=== PATIENT | male | born 1935 | race Caucasian/White ===

== ENCOUNTER 2016-12-21 20:50 | Emergency (ER) ==
[2016-12-21] MEDS ORDERED: DEXTROSE 5%-1/2NS IV SOLUTION 1,000 ML IV STA (20:54)
[2016-12-21 21:08] VITALS: BP 152/75; TEMP 98.8; BMI 33.9
--- NOTE | 2016-12-22 01:36 | ED.PDOC ---
General ED Provider: Dr. MARIVEL SIMMONS-ER Chief Complaint: Non-specific Complaint Stated Complaint: i took too much short acting insulin Time Seen by Physician: 01:33 Mode of Arrival: Walk-In Information Source: Patient Exam Limitations: No limitations Primary Care Provider: MARIVEL SIMMONS Nursing and Triage Documentation Reviewed and Agree: Yes Endocrine Complaint Exam - Diabetic Complication Complaint/Exam Onset/Duration: 30 min Symptoms Are: Still present Timing: Constant Initial Severity: Mild Current Severity: None Character: Alert Aggravating: Reports: None Alleviating: Reports: None Associated Signs and Symptoms: Denies: Decreased LOC, Polydipsia, Polyuria, Polyphagia, Weight loss, Abdominal pain, Nausea, Vomiting, Fever, Diaphoresis, Fruity breath Related History: Reports: DM 2 Last Glucometer Readin Cardiac Risk Factors: Reports: DM CVA Risk Factors: Reports: DM Serious Bacterial Infection Risk Factors: Reports: None Related Surgical History: Reports: None Acetone on Breath: No Dry Mucous Membranes: No Kussmaul Respirations: No Glascow Coma Scale (see protocol): 15 Meningeal Signs: No Focal Weakness: None Focal Sensory Loss: None Gait: Normal Nystagmus Present: No Gag Reflex Present: No Finger to Nose: Normal Romberg Test Positive: No Heel to Toe Normal: Yes Differential Diagnoses: Hypoglycemia Review of Systems - Review Of Systems Constitutional: Reports: No symptoms Eyes: Reports: No symptoms Ears, Nose, Mouth, Throat: Reports: No symptoms Respiratory: Reports: No symptoms Cardiac: Reports: No symptoms GI: Reports: No symptoms : Reports: No symptoms Musculoskeletal: Reports: No symptoms Skin: Reports: No symptoms Neurological: Reports: No symptoms Endocrine: Reports: No symptoms Hematologic/Lymphatic: Reports: No symptoms All Other Systems: Reviewed and Negative Past Medical History - Past Medical History Endocrine: Reports: DM 2 Cardiovascular: Reports: Hypertension, A-Fib Respiratory: Reports: COPD Hematological: Reports: None Gastrointestinal: Reports: GERD Genitourinary: Reports: None Neuro/Psych: Reports: None Musculoskeletal: Reports: None Cancer: Reports: None - Surgical History General Surgical History: Reports: Unknown - Family History Family History: Reports: Unknown - Social History Smoking Status: Former smoker Hx Substance Use: No Alcohol Screening: Occasionally - Immunizations Tetanus Shot up to Date: No Physical Exam - Physical Exam Appearance: Well-appearing, No pain distress, Well-nourished Eyes: SUZANNE, EOMI, Conjunctiva clear ENT: Ears normal, Nose normal, Oropharynx normal Neck: Supple Respiratory: Airway patent, Breath sounds clear, Breath sounds equal, Respirations nonlabored Cardiovascular: RRR, Pulses normal, No rub, No murmur GI/: Soft, Nontender, No masses, Bowel sounds normal, No Organomegaly Musculoskeletal: Normal strength, ROM intact, No edema, No calf tenderness Skin: Warm, Dry, Normal color Neurological: Sensation intact, Motor intact, Reflexes intact, Cranial nerves intact, Alert, Oriented Psychiatric: Affect appropriate, Mood appropriate Critical Care Note - Critical Care Note Total Time (mins): 0 Course - Course Orders, Labs, Meds: Orders Category Date Time Status ACCUCHECK (ED) [ED ACCUCHECK ASSESSMENT] Q1HR EMERGENCY 12/21/16 20:54 Active ED IV/MEDIPORT/POWERPORT .ONCE EMERGENCY 12/21/16 20:54 Active 0.9 % Sodium Chloride [Saline Flush] MEDS 12/21/16 20:54 Ordered 1 syr IVF PRN PRN Dextrose 5 %-0.45 % NaCl [Dextrose 5%-1/2Ns IV Solution MEDS 12/21/16 20:54 Active ] 1,000 ml IV 100 mls/hr Medications Generic Name Dose Route Start Last Admin Trade Name Freq PRN Reason Stop Dose Admin Dextrose/Sodium Chloride 1,000 mls @ 100 mls/hr 12/21/16 20:54 12/21/16 21:15 Dextrose 5%-1/2ns Iv Solution IV 12/22/16 06:53 100 mls/hr .Q10H STA Administration Sodium Chloride 1 syr 12/21/16 20:54 Saline Flush IVF PRN PRN To flush IV Vital Signs: Temp Pulse Resp BP Pulse Ox 12/21/16 20:53 98.8 F 79 22 152/75 H 96 Departure - Departure Time of Disposition: 01:36 Disposition: HOME SELF-CARE Discharge Problem: Hypoglycemia Instructions: Hypoglycemia in a Person with Diabetes (ED) Condition: Good Pt referred to PMD for follow-up: Yes Additional Instructions: continue to monitor bs---keep me informd Allergies/Adverse Reactions: Allergies No Known Allergies Allergy (Unverified 12/21/16 22:22) Home Medications: Ambulatory Orders Apixaban [Eliquis] 5 mg PO BID 12/21/16 Atenolol 25 mg PO DAILY 12/21/16 Ergocalciferol (Vitamin D2) [Vitamin D2] 50,000 units PO MONTHLY 12/21/16 Ezetimibe [Zetia] 10 mg PO DAILY 12/21/16 Fluticasone/Vilanterol [Breo Ellipta 100-25 Mcg INH] 1 mcg INH DAILY 12/21/16 Furosemide 20 mg PO DAILY 12/21/16 Gabapentin 600 mg PO BEDTIME 12/21/16 Hydrocodone/Acetaminophen [Hydrocodon-Acetaminophn 10-325] 10 - 325 mg PO Q6HR 12/21/16 Insulin Detemir [Levemir] 220 units SUBCUT BEDTIME 12/21/16 Insulin Lispro [Humalog Kwikpen U-200] 80 units SUBCUT TID 12/21/16 Losartan Potassium [Cozaar] 50 mg PO DAILY 12/21/16 Prednisone 10 mg PO DAILYWM 12/21/16 Quetiapine Fumarate 100 mg PO BEDTIME 12/21/16 Disposition Discussed With: Patient
== END 2016-12-22 02:04 | disposition home or self-care (01) ==
LOC: ED 20:50
DX: E11.649 Type 2 diabetes mellitus with hypoglycemia without coma (principal); Z79.4 Long term (current) use of insulin; Z79.899 Other long term (current) drug therapy
CPT/HCPCS: 82962; 96360; 96361; 99284

== ENCOUNTER 2017-03-06 21:57 | Inpatient (IN) ==
[2017-03-06] MEDS ORDERED: SOLU-MEDROL 125 MG IVP STA (22:13)
[2017-03-06] MEDS ORDERED: BUMEX IVP STA (22:13)
[2017-03-06] MEDS ORDERED: XOPENEX 1.25 MG NEB STA (22:14)
[2017-03-06] MEDS ORDERED: DUONEB NEB STA (22:14)
[2017-03-06 22:31] LABS: BASOPHILS # (AUTO) 0.1 K/uL (0-0.2); BASOPHILS % (AUTO) 0.7 % (0.0-3.0); EOSINOPHILS # (AUTO) 0.1 K/ul (0.0-0.7); EOSINOPHILS % (AUTO) 1.2 % (0.0-7.0); HEMATOCRIT 37.2 % (42.0-52.0); HEMOGLOBIN 12.5 g/dl (14.0-18.0); IMMATURE GRANULOCYTE % (AUTO) 2.4 % (0.0-5.0); MEAN CORPUSCULAR HEMOGLOBIN 30.7 pg (27.0-31.0); MEAN CORPUSCULAR HGB CONC 33.6 (31.8-35.4); MEAN CORPUSCULAR VOLUME 91.4 fl (80.0-94.0); MONOCYTES # (AUTO) 0.7 K/uL (0.4-2.0); MONOCYTES % (AUTO) 6.7 (0-10); PLATELET COUNT 183 10^3/uL (140-440); RED BLOOD COUNT 4.07 10^6/ul (4.70-6.10); WHITE BLOOD COUNT 10.09 K/ul (4.2-10.2)
[2017-03-06 23:25] LABS: ALBUMIN 3.9 g/dL (3.4-5.0); ALBUMIN/GLOBULIN RATIO 1.5; ANION GAP 18.9; BILIRUBIN,TOTAL 0.18 mg/dL (0.00-1.20); BUN/CREATININE RATIO 21.83; CALCIUM 9.6 mg/dL (8.2-10.2); CREATININE 1.42 mg/dL (0.60-1.10); POTASSIUM 3.9 mmol/L (3.5-5.1); TOTAL PROTEIN 6.5 g/dL (5.8-8.1); TROPONIN I 0.012 ng/ml (0.0000-0.4000)
[2017-03-06 23:27] LABS: CREATINE KINASE MB 4.2 ng/ml (0.0-3.6)
--- NOTE | 2017-03-06 23:58 | CT ---
EXAM: CT scan thorax without contrast HISTORY: Shortness of breath cough COMPARISON: none. FINDINGS: Contiguous axial images were obtained through the thorax without contrast utilizing 5-mm collimation . Sagittal and coronal reconstructions were imaged and reviewed The thoracic inlet is unremarkable. . Subcentimeter pretracheal lymph nodes. Calcified lymph nodes are seen the AP window. The ascend ing aorta is ectatic measuring 3.7 cm. The descending thoracic at the same level measures 2.9 cm. Heart is normal in size with coronary artery calcification. There are moderate emphysematous change s. There is a 2 mm nodule peripherally within the right upper lobe.. Scattered areas of subpleural fibrotic changes are noted in both lower lobes.. There has been prior cholecystectomy. There is a small hiatal hernia.. Impression: Emphysematous changes with scattered areas of subpleural fibrosis. No acute findings. Prior cholecystectomy.
[2017-03-07 00:05] LABS: ABG BASE EXCESS 1 (-2.0-2.0); ABG HCO3 25.5 (22.0-26.0); ABG PCO2 39.9 mmHg (35-45); ABG PH 7.413 (7.35-7.45); ABG TCO2 27 (22.0-28.0)
[2017-03-07] MEDS ORDERED: SODIUM CHLORIDE 500 ML IV STA (00:17)
[2017-03-07] MEDS ORDERED: ROCEPHIN 1 GM in SODIUM CHLORIDE 50 ML IV STA (00:51)
--- NOTE | 2017-03-07 01:05 | ED.PDOC ---
General ED Provider: Dr. MARIVEL SIMMONS-ER Chief Complaint: Shortness of Air Stated Complaint: im wheezing and sob Time Seen by Physician: 21:55 Mode of Arrival: Walk-In Information Source: Patient Exam Limitations: No limitations Primary Care Provider: MARIVEL SIMMONS Nursing and Triage Documentation Reviewed and Agree: Yes Respiratory Complaint Exam - Respiratory Complaint/Exam Onset/Duration: several days Symptoms Are: Still present Initial Severity: Mild Current Severity: Moderate Location: Chest Character: Reports: Productive cough Alleviating: Reports: Bronchodilators Associated Signs and Symptoms: Reports: Dyspnea. Denies: Rapid breathing, Fever , Chills, Chest pain, Pleuritic chest pain, Wheezing, Hemoptysis, Dizziness, Calf pain, Calf swelling, Edema, URI, Nasal congestion, Hoarseness, Sinus discomfort, Vomiting, Sore throat, Weight loss, Decreased oral intake, Increased thirst, Increased appetite, Increased urination Related History: Reports: Similar episode History of Healthcare-Acquired Pneumonia: No Cardiac Risk Factors: Reports: None Pseudomonas Risk Factors: Reports: Chronic Lung Disease Tuberculosis Risk Factors: Reports: Chronic Resp. Faliure Home Oxygen Use: Yes Recent Stress Test: No Recent Echo/LV Function: No Current Antibiotic Use: No Current Asthma Medication Use: No Respiratory Distress: Mild Inadequate Respiratory Effort: Yes Dysphagia Present: No Stridor Present: No JVD Present: No Accessory Muscle Use: Yes Retractions: Not Present Diminished Breath Sounds: Yes Sinus Tenderness: None Grunting Respirations: No Kussmaul Respirations: No Differential Diagnoses: COPD Exacerbation, Pneumonia, Bronchitis Non-Traumatic Chest Pain Syncope: EKG Performed Review of Systems - Review Of Systems Constitutional: Reports: No symptoms Eyes: Reports: No symptoms Ears, Nose, Mouth, Throat: Reports: No symptoms Respiratory: Reports: Cough, Wheezing Cardiac: Reports: No symptoms GI: Reports: No symptoms : Reports: No symptoms Musculoskeletal: Reports: No symptoms Skin: Reports: No symptoms Neurological: Reports: No symptoms Endocrine: Reports: No symptoms Hematologic/Lymphatic: Reports: No symptoms All Other Systems: Reviewed and Negative Past Medical History - Past Medical History Previously Healthy: Yes Endocrine: Reports: DM 2 Cardiovascular: Reports: Hypertension, A-Fib Respiratory: Reports: COPD Hematological: Reports: None Gastrointestinal: Reports: GERD Genitourinary: Reports: None Neuro/Psych: Reports: None Musculoskeletal: Reports: None Cancer: Reports: None - Surgical History General Surgical History: Reports: Unknown - Family History Family History: Reports: Unknown - Social History Smoking Status: Former smoker Hx Substance Use: No Alcohol Screening: None Lives: With family - Immunizations Tetanus Shot up to Date: Yes Physical Exam - Physical Exam Appearance: Well-appearing, No pain distress, Well-nourished Eyes: SUZANNE, EOMI, Conjunctiva clear ENT: Ears normal Neck: Supple Respiratory: Wheezes Cardiovascular: RRR, Pulses normal, No rub, No murmur GI/: Soft, Nontender, No masses, Bowel sounds normal, No Organomegaly Musculoskeletal: Normal strength Skin: Warm, Dry, Normal color Neurological: Sensation intact, Motor intact, Reflexes intact, Cranial nerves intact, Alert, Oriented Psychiatric: Affect appropriate, Mood appropriate, Anxious Interpretation - Radiology Interpretation Radiology Interpretation By: Radiologist Radiology Results: Positive Exam Interpreted: CT Scan - EKG Interpretation Time of EKG #1: 01:05 Rate: Normal Rhythm: Sinus Ectopy: None ST Segment: Normal Critical Care Note - Critical Care Note Total Time (mins): 0 Course - Course Hematology/Chemistry: 03/06/17 22:10 03/06/17 22:20 Orders, Labs, Meds: Lab Review 03/06/17 03/06/17 03/06/17 22:10 22:12 22:20 WBC 10.09 RBC 4.07 L Hgb 12.5 L Hct 37.2 L MCV 91.4 MCH 30.7 MCHC 33.6 RDW Coeff of [place] 13.8 Plt Count 183 Immature Gran % (Auto) 2.4 Neut % (Auto) 69.0 Lymph % (Auto) 20.0 [place] % (Auto) 6.7 Eos % (Auto) 1.2 Baso % (Auto) 0.7 Immature Gran # (Auto) 0.2 Neut # 7.0 H Lymph # 2.0 Chase # 0.7 Eos # 0.1 Baso # 0.1 Puncture Site Lr O2 Saturation 94.0 L ABG pH 7.413 ABG pCO2 39.9 ABG pO2 71.0 L ABG HCO3 25.5 ABG Total CO2 27 ABG Base Excess 1 Yung Test + O2 Delivery Device Nc Oxygen Liter Flow 2.00 FiO2 % 28.0 Sodium 142 Potassium 3.9 Chloride 105 Carbon Dioxide 22 L Anion Gap 18.9 BUN 31 H Creatinine 1.42 H Estimated GFR (MDRD) 48.00 BUN/Creatinine Ratio 21.83 Glucose 187 H Calcium 9.6 Total Bilirubin 0.18 AST 22 ALT 36 Alkaline Phosphatase 53 L Total Creatine Kinase 207 CK-MB (CK-2) 4.2 H CK-MB (CK-2) % 2.33483 Troponin I 0.0120 B-Natriuretic Peptide 62 Total Protein 6.5 Albumin 3.9 Globulin 2.6 Albumin/Globulin Ratio 1.50 Orders Category Date Time Status ABG DRAW REQUEST Stat CARDIO 03/06/17 22:12 Completed EKG-(ED ONLY) Stat CARDIO 03/06/17 22:12 Completed NEBULIZER TREATMENT Stat CARDIO 03/06/17 22:14 Completed ED IV/MEDIPORT/POWERPORT .ONCE EMERGENCY 03/06/17 22:13 Active ABG Stat LAB 03/06/17 22:12 Completed BLOOD CULTURE Stat LAB 03/06/17 22:50 Received BNP [B-TYPE NATRIURETIC PEPTIDE] Stat LAB 03/06/17 22:10 Completed CBC W/ AUTO DIFF Stat LAB 03/06/17 22:10 Completed COMPREHENSIVE METABOLIC PANEL Stat LAB 03/06/17 22:20 Completed CREATINE KINASE Stat LAB 03/06/17 22:20 Completed TROPONIN I Stat LAB 03/06/17 22:20 Completed 0.9 % Sodium Chloride [Saline Flush] MEDS 03/06/17 22:13 Ordered 1 syr IVF PRN PRN Bumetanide [Bumex] MEDS 03/06/17 22:13 Discontinued 1 mg IVP ONCE STA Ceftriaxone Sodium [Rocephin] 1 gm MEDS 03/07/17 00:51 Active 0.9 % Sodium Chloride [Sodium Chloride] 50 ml IV ONCE Ipratropium/Albuterol Neb [Duoneb] MEDS 03/06/17 22:14 Discontinued 1 vial NEB ONCE STA Levalbuterol HCl [Xopenex 1.25 mg] MEDS 03/06/17 22:14 Discontinued 1 vial NEB ONCE STA Methylprednisolone Sod Succ/Pf [Solu-Medrol 125 mg] MEDS 03/06/17 22:13 Discontinued 125 mg IVP ONCE STA Sodium Chloride 0.9% [Sodium Chloride] 500 ml MEDS 03/07/17 00:[address] CHEST W/O CONTRAST Stat RADS 03/06/17 22:14 Completed Medications Generic Name Dose Route Start Last Admin Trade Name Freq PRN Reason Stop Dose Admin Sodium Chloride 500 mls @ 500 mls/hr 03/07/17 00:17 03/07/17 00:43 Sodium Chloride IV 03/07/17 01:16 500 mls/hr BOLUS STA Administration Ceftriaxone Sodium 1 gm/ 50 mls @ 75 mls/hr 03/07/17 00:51 Sodium Chloride IV 03/07/17 01:30 ONCE STA Sodium Chloride 1 syr 03/06/17 22:13 Saline Flush IVF PRN PRN To flush IV Discontinued Medications Generic Name Dose Route Start Last Admin Trade Name Ivette PRN Reason Stop Dose Admin Albuterol/Ipratropium 1 vial 03/06/17 22:14 03/06/17 22:57 Duoneb NEB 03/06/17 22:15 1 vial ONCE STA Administration Bumetanide 1 mg 03/06/17 22:13 03/06/17 22:31 Bumex IVP 03/06/17 22:14 1 mg ONCE STA Administration Levalbuterol HCl 1 vial 03/06/17 22:14 03/06/17 23:07 Xopenex 1.25 Mg NEB 03/06/17 22:15 1 vial ONCE STA Administration Methylprednisolone Sodium Succinate 125 mg 03/06/17 22:13 03/06/17 22:31 Solu-Medrol 125 Mg IVP 03/06/17 22:14 125 mg ONCE STA Administration Vital Signs: Temp Pulse Resp BP Pulse Ox 03/06/17 21:58 99.7 F H 84 24 123/79 94 L Departure - Departure Time of Disposition: 01:05 Disposition: ADMITTED INPATIENT Discharge Problem: Obstructive chronic bronchitis with exacerbation Acute respiratory failure Qualifiers: Respiratory failure complication: hypoxia Qualifier Code: (J96.01) Acute respiratory failure with hypoxia Instructions: COPD (Chronic Obstructive Pulmonary Disease) (ED) Condition: Stable Pt referred to PMD for follow-up: Yes Allergies/Adverse Reactions: Allergies No Known Allergies Allergy (Verified 03/06/17 22:05) Home Medications: Ambulatory Orders Apixaban [Eliquis] 5 mg PO BID 12/21/16 Atenolol 25 mg PO BEDTIME 12/21/16 Ergocalciferol (Vitamin D2) [Vitamin D2] 50,000 units PO DAILY 12/21/16 Ezetimibe [Zetia] 10 mg PO DAILY 12/21/16 Fluticasone/Vilanterol [Breo Ellipta 100-25 Mcg INH] 1 mcg INH DAILY 12/21/16 Furosemide 20 mg PO DAILY 12/21/16 Gabapentin 600 mg PO BEDTIME 12/21/16 Hydrocodone/Acetaminophen [Hydrocodon-Acetaminophn 10-325] 10 - 325 mg PO Q6HR 12/21/16 Insulin Detemir [Levemir] 240 units SUBCUT BEDTIME 12/21/16 Insulin Lispro [Humalog Kwikpen U-200] 80 units SUBCUT TID 12/21/16 Losartan Potassium [Cozaar] 50 mg PO DAILY 12/21/16 Prednisone 10 mg PO DAILYWM 12/21/16 Quetiapine Fumarate 100 mg PO BEDTIME 12/21/16 Cholecalciferol (Vitamin D3) [Vitamin D3] 1,000 unit PO DAILY 03/06/17 Potassium 99 mg PO DAILY 03/06/17 Disposition Discussed With: Patient, Family
[2017-03-07] MEDS ORDERED: NORCO 10-325 PO PRN (01:11)
[2017-03-07] MEDS ORDERED: ROCEPHIN ONE (01:28)
[2017-03-07 02:17] VITALS: BMI 35.6
[2017-03-07] MEDS ORDERED: SOLU-MEDROL 40 MG ONE (04:37)
[2017-03-07] MEDS ORDERED: SOLU-MEDROL 40 MG IVP SCH (05:00)
[2017-03-07] MEDS: DUONEB NEB SCH ×4 (05:17→23:06)
[2017-03-07 05:58] LABS: BASOPHILS % (AUTO) 0.5 % (0.0-3.0); HEMATOCRIT 36.5 % (42.0-52.0); HEMOGLOBIN 12.1 g/dl (14.0-18.0); IMMATURE GRANULOCYTE % (AUTO) 4.2 % (0.0-5.0); LYMPHOCYTES # (AUTO) 0.6 K/uL (0.60-3.4); LYMPHOCYTES % (AUTO) 7.5 (10.0-50.0); MEAN CORPUSCULAR HEMOGLOBIN 30.5 pg (27.0-31.0); MEAN CORPUSCULAR HGB CONC 33.2 (31.8-35.4); MEAN CORPUSCULAR VOLUME 91.9 fl (80.0-94.0); MONOCYTES # (AUTO) 0.1 K/uL (0.4-2.0); MONOCYTES % (AUTO) 0.7 (0-10); NEUTROPHILS # (AUTO) 7.2 K/ul (2.0-6.9); NEUTROPHILS % (AUTO) 87.1; PLATELET COUNT 172 10^3/uL (140-440); RED BLOOD COUNT 3.97 10^6/ul (4.70-6.10); WHITE BLOOD COUNT 8.25 K/ul (4.2-10.2)
[2017-03-07 06:19] LABS: ALBUMIN 3.8 g/dL (3.4-5.0); ALBUMIN/GLOBULIN RATIO 1.36; ANION GAP 19.6; BILIRUBIN,TOTAL 0.21 mg/dL (0.00-1.20); BUN/CREATININE RATIO 22.22; CALCIUM 9.5 mg/dL (8.2-10.2); CREATININE 1.35 mg/dL (0.60-1.10); POTASSIUM 4.6 mmol/L (3.5-5.1); TOTAL PROTEIN 6.6 g/dL (5.8-8.1)
[2017-03-07] MEDS: HUMULIN R SUBCUT PRN ×4 (06:19→20:24)
[2017-03-07] MEDS ORDERED: NON-FORMULARY MEDICATION (Cholecalciferol (Vitamin D3) [Vitamin D3] 1,000 UNIT) PO SCH ×22 (09:00)
[2017-03-07] MEDS ORDERED: DRISDOL PO SCH (09:00)
[2017-03-07] MEDS ORDERED: NON-FORMULARY MEDICATION (Losartan Potassium 50 MG) PO SCH (09:00)
[2017-03-07] MEDS: ELIQUIS PO SCH ×2 (09:02→20:25)
[2017-03-07] MEDS: ZETIA PO SCH (09:02)
[2017-03-07] MEDS: COZAAR PO SCH (09:02)
[2017-03-07] MEDS: VITAMIN D PO SCH (09:02)
[2017-03-07] MEDS: LASIX TAB PO SCH (09:02)
[2017-03-07] MEDS: [UNRECOGNIZED DRUG - OTHER] INH SCH (09:26)
[2017-03-07] MEDS: VILANTEROL INH SCH (09:26)
[2017-03-07] MEDS: NON-FORMULARY MEDICATION (Potassium [Potassium] 99 MG) PO SCH (09:26)
[2017-03-07] MEDS: NON-FORMULARY MEDICATION SUBCUT SCH ×44 (11:32→17:06)
[2017-03-07] MEDS ORDERED: INSULIN LISPRO 80 UNIT SUBCUT SCH (12:00)
[2017-03-07] MEDS: SOLU-MEDROL 40 MG IVP SCH ×2 (13:33→21:04)
[2017-03-07] MEDS ORDERED: TENORMIN PO SCH (21:00)
[2017-03-07] MEDS ORDERED: ROCEPHIN 1 GM in SODIUM CHLORIDE 50 ML IV SCH (21:00)
[2017-03-07] MEDS ORDERED: LEVEMIR SUBCUT SCH (21:00)
[2017-03-07] MEDS ORDERED: NEURONTIN PO SCH (21:00)
[2017-03-07] MEDS ORDERED: NON-FORMULARY MEDICATION (Gabapentin [Gabapentin] 600 MG) PO SCH (21:00)
[2017-03-07] MEDS ORDERED: SEROQUEL PO SCH (21:00)
[2017-03-08] MEDS: SOLU-MEDROL 40 MG IVP SCH ×2 (04:23→12:55)
[2017-03-08 04:57] LABS: BASOPHILS % (AUTO) 0.2 % (0.0-3.0); HEMATOCRIT 33.5 % (42.0-52.0); HEMOGLOBIN 11.2 g/dl (14.0-18.0); LYMPHOCYTES # (AUTO) 0.4 K/uL (0.60-3.4); LYMPHOCYTES % (AUTO) 3.5 (10.0-50.0); MEAN CORPUSCULAR HEMOGLOBIN 30.4 pg (27.0-31.0); MEAN CORPUSCULAR HGB CONC 33.4 (31.8-35.4); MEAN CORPUSCULAR VOLUME 90.8 fl (80.0-94.0); MONOCYTES # (AUTO) 0.4 K/uL (0.4-2.0); MONOCYTES % (AUTO) 3.5 (0-10); NEUTROPHILS # (AUTO) 11.2 K/ul (2.0-6.9); NEUTROPHILS % (AUTO) 90.8; PLATELET COUNT 164 10^3/uL (140-440); RED BLOOD COUNT 3.69 10^6/ul (4.70-6.10); WHITE BLOOD COUNT 12.37 K/ul (4.2-10.2)
[2017-03-08] MEDS: DUONEB NEB SCH ×3 (05:06→17:10)
[2017-03-08 05:31] LABS: ALBUMIN 3.5 g/dL (3.4-5.0); ALBUMIN/GLOBULIN RATIO 1.03; ANION GAP 19.6; BILIRUBIN,TOTAL 0.24 mg/dL (0.00-1.20); CALCIUM 9.4 mg/dL (8.2-10.2); CREATININE 1.36 mg/dL (0.60-1.10); POTASSIUM 4.6 mmol/L (3.5-5.1); TOTAL PROTEIN 6.9 g/dL (5.8-8.1)
[2017-03-08] MEDS: HUMULIN R SUBCUT PRN ×2 (05:51→11:17)
[2017-03-08] MEDS: LASIX TAB PO SCH (05:51)
[2017-03-08] MEDS: NON-FORMULARY MEDICATION SUBCUT SCH ×66 (08:13→17:49)
[2017-03-08] MEDS: VILANTEROL INH SCH (08:14)
[2017-03-08] MEDS: VITAMIN D PO SCH (08:14)
[2017-03-08] MEDS: ZETIA PO SCH (08:14)
[2017-03-08] MEDS: NON-FORMULARY MEDICATION (Potassium [Potassium] 99 MG) PO SCH (08:14)
[2017-03-08] MEDS: [UNRECOGNIZED DRUG - OTHER] INH SCH (08:14)
[2017-03-08] MEDS: ELIQUIS PO SCH (08:15)
[2017-03-08] MEDS: COZAAR PO SCH (08:15)
[2017-03-08 14:11] VITALS: BP 127/56; TEMP 98.5
--- NOTE | 2017-03-09 15:33 | HP ---
CHIEF COMPLAINT: " I can't breath" DISCUSSION: This an 81 year old gentleman with a history of chronic respiratory failure, COPD, atrial fibrillation and chronic diastolic congestive failure who presented with his to the emergency room for wheezing and shortness of breath for the past several hours. He has had increased cough with production of scant yellowish sputum without fevers or chills. In the emergency department he was given steroids and bronchial dilators and antibiotics with in improvement of his symptoms. CT scan did not reveal any evidence of acute fluid , his BNP was normal but his blood gases did reveal diminished pO2 on 2 liters consisted with acute superimposed on chronic respiratory failure. At this point the patient was admitted to my services for treatment of this and probably COPD exacerbation with bronchitis. 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 FAMILY HISTORY: Reviewed and thought not to be pertinent to discussion REVIEW OF SYSTEMS: No headaches, visual changes, tinnitus, hemoptysis, blood in the stool, urinary symptoms, chest pain or seizures. PHYSICAL EXAMINATION: V/S: Temperature 97, pulse 84, respiratory 24 and blood pressure 123/79 HEENT: Pupils are round. Plethora appear face. NECK: Supple. CHEST: Scattered bronchi with a few expiratory wheezes. CARDIOVASCULAR: Regular rate and rhythm. ABDOMEN: Soft, nontender. EXTREMITIES: Distal extremities trace edema. ASSESSMENT: 1. Acute respiratory failure, superimposed on chronic respiratory failure due to 2. COPD exacerbation with bronchitis 3. Chronic diastolic congestive failure, compensated 4. Insulin treated Type II diabetes 5. Diabetic Neuropathy 6. Hypertension PLAN: 1. Admission 2. Steroids 3. Bronchial Dilator 4. Antibiotics 5. Please see orders. MTDD
--- NOTE | 2017-03-10 08:16 | DS ---
PRINCIPAL DIAGNOSIS: 1. Acute respiratory failure superimposed on chronic respiratory failure 2. COPD exacerbation bronchitis 3. Chronic diastolic congestive failure, compensated 4. Insulin treated Type II diabetes 5. Diabetic neuropathy 6. Hypertension DISCUSSION: 81 year old gentleman with history fo COPD, chronic respiratory failure, atrial fibrillation, diastolic congestive heart failure (compensated) presented with his to the emergency department for wheezing and shortness of breath over the past several hours. He has had cough productive with scant yellowish sputum without fever, chills or hemoptysis. In the emergency department he was given IV steroids, bronchial dilators and antibiotics with improvement of his symptoms. CT scan did not reveal any evidence of acute fluids, BNP was normal. Blood gasses did reveal diminished pO2 on 2 liters of oxygen. We felt this represented acute respiratory failure superimposed chronic respiratory failure. He was admitted to my services for treatment of this with COPD exacerbation and bronchitis. For further details see history fo physical. CLINICAL COURSE: He was given IV antibiotics steroids, bronchial dilators with marked improvement of symptoms. He mobilized more sputum and his oxygenation improved and he became ambulatory. He remained afebrile and we began to wean steroids. At the time of discharge he was afebrile and tolerating regular diet and his oxygenation improved and at this point we thought that he was stable for discharge. He was discharged with IV antibiotic steroids as well as his home oxygen. He is going to followup with me in one week. Please see orders. MTDD
== END 2017-03-08 18:15 | disposition home or self-care (01) | DRG 189 ==
LOC: ED 21:57 → MEDSURG B 03-07 01:17
PROVIDERS: ADMIT Family Medicine; ATTEND Family Medicine
DX: J96.20 Acute and chronic respiratory failure, unspecified whether with hypoxia or hypercapnia (principal); J44.1 Chronic obstructive pulmonary disease with (acute) exacerbation; I50.32 Chronic diastolic (congestive) heart failure; J44.0 Chronic obstructive pulmonary disease with (acute) lower respiratory infection; J20.9 Acute bronchitis, unspecified; I48.91 Unspecified atrial fibrillation; R06.02 Shortness of breath; E11.9 Type 2 diabetes mellitus without complications; E11.40 Type 2 diabetes mellitus with diabetic neuropathy, unspecified; I10 Essential (primary) hypertension; Z87.891 Personal history of nicotine dependence; Z79.01 Long term (current) use of anticoagulants; Z79.4 Long term (current) use of insulin; Z79.899 Other long term (current) drug therapy
CPT/HCPCS: 36415; 80053; 82550; 82553; 82803; 82962; 83880; 84484; 85025; 87040; 93005; 93010; 94640; 96361; 96366; 96374; 96375; 99283; 99284

== ENCOUNTER 2017-08-27 14:00 | Outpatient (RCR) ==
[2017-03-13 19:46] VITALS: BMI 33.9
--- NOTE | 2017-08-05 15:09 | RS.OPPTEV2 ---
Date of Note: 08/04/17 Visit #: 1 Date of Evaluation: 08/04/17 Payer Source: MEDICARE Treatment Diagnosis: LE weakness, back pain History of Condition/Mechanism of Injury:: Patient reports progress LE weakness and low back pain. Reports more pain with standing and walking in the past year. Prior Level of Function.....Patient was independent with: ADL's, Self Care, Ambulation/Mobility, Community Integration/Access Functional Limitations: ADL's, Lifting, Standing, Bending, Ambulation, Community Access/Integration Current Subjective/complaints:: Reports increased back pain with walking and prolonged standing. States pain is mostly in his very low back. Reports he has arthritis in both knees and neuropathy in his legs from Diabetes. He has been on Oxygen for approximately three years. States he can only walk about 100 -150 feet before he has to sit because of back pain. Reports difficulty standing long enough to complete ADL's due to increase in back pain. He does not use an assistive device. Reports no falls, but states he has stumbled. States he tolerates sitting better than walking or standing. Does report sitting too long will bother his hips at times. Medical History Medical History: COPD, Diabetes Medical History Comments:: Chronic respiratory failure, Chronic diastolic congestive failure, Diabetic neuropathy, Obesity, sleep apnea. Surgical History: Cholecystectomy Smoking Status: Former smoker Hx Home Medications: Gabapentin,Hydrocodone, Seroquel, Furosemide, Atenolol, Losartan,Levemir Patient's Goals: His goal is to be able to stand and walk longer before his back pain starts. Pain Assessment - Pain Description Pain Location: low back pain Current Pain Intensity: 2/10 Worst Pain Intensity: 8/10 Functional Outcome Measure LE Functional Scale: 20 (20/80=75 % impairment) - G Codes & Severity Modifier G Codes & Modifier: Mob current CL. Mob goal CK Source of G Code score: LE functional scale Observation - Observation Inspection: Patient presents to the department with a pulse or on-demand oxygen tank. Posture: Forward Head, Rounded Shoulders Gait - Gait Pattern Gait Comments: Patient ambulates without an assistive device with flexed posture at the hips and lumbar spine. Demonstrates an antalgic, guarded gait. Exhibits SOA with ambulating short distances. - ROM Lumbar Flexion: Hand reach to patellae Lumbar Spine ROM Limitations: Soft Tissue Tightness, Pain Comments: Lumbar extension approximately 20 degrees and with reports of a reproduction of his low back pain. LE AROM is WFL's. - Strength Trunk Rotation: 4- Good- Comments: Right hip strength generally 4/5. Quads and HS 4/5, ankle 4+/5. Left hip strength generally 4/5, quads and HS - Special Tests TIMOTHY Test: Negative Left, Negative Right SLR Test: Negative Left, Negative Right Seated Dural Stretch Test: Negative Left, Negative Right Palpation Comments:: Patient demonstrates moderate increase in muscle tone along the lumbosacral junction. Reports this is main area of pain. Reports no superficial tenderness along lumbar paraspinals or to either SI joint. Reports some discomfort with anterior mobility to the sacrum. Sensation - Sensation Comments: Reports impaired sensation from mid lower leg to the toes due to Diabetic Neuropathy. Additional Comments: Additional Comments: Right SLR to 30 degrees in supine, Left SLR to 35-40 degrees. Left LE presents longer in supine. Interventions - Exercise/Activities/Manual Therapy Exercises/Activities: No exercises given today for HEP. Manual Therapy: NA - Charges Timed Code Treatment Minutes: 55 mins Total Treatment Time: 55 mins Procedures billed for this date of service:: EVAL Medium Assessment Assessment: Patient presents to therapy with a diagnosis of low back pain and LE weakness. He has multiple medical issues that affect his tolerance and ability with activites. He reports limited ability to tolerate walking and prolonged standing, due to low back pain. He demonstrates significant muscle guarding along the lumbosacral junction bilaterally. He also exhibits tight HS bilaterally, and general weakness in the LE's especially in the hips. He demonstrates potential to benefit from stretching to the lumbar spine and LE's and progressed exercises of anterior trunk muscle strengthening to decrease his pain with standing and walking activites. Short Term Goals Goal #1: Pt independent and compliant with HEP. Goal to be met by: 08/19/17 Goal #2: Bilateral SLR improved to 45 degrees. Goal to be met by: 08/19/17 Goal #3: Bilateral hip flexion 4+/5. Goal to be met by: 08/19/17 Goal #4: Muscle tone in lumbosacral region decreased to minimal. Goal to be met by: 08/19/17 Pole Inspector Goals Goal #1: Pt knows HEP and to continue ex's to maintain functional level at D/C. Goal to be met by: 09/14/17 Goal #2: Score on LE functional scale improved to less than 59% impairment. Goal to be met by: 09/14/17 Goal #3: Pt to amb. community distances with minimal low back pain. Goal to be met by: 09/14/17 Goal #4: Pt will tolerate prolonged standing with minimal back pain. Goal to be met by: 09/14/17 Plan - Treatment to be Provided Procedures: Therapeutic Exercises, Therapeutic Activity, Manual Therapy, Patient Education Modalities: Electrical Stimulation, Ultrasound/Phonophoresis, Cryotherapy, Hot Packs - Treatment Plan Frequency: 3 X week Duration: 4 weeks ORDER # VISITS AND/OR THROUGH DATE: 09/14/17 - Treatment Code (1) Low back pain Code(s): M54.5 - LOW BACK PAIN Qualifiers: Chronicity: chronic Back pain laterality: unspecified Sciatica presence: unspecified whether sciatica present Qualified Code(s): M54.5 - Low back pain ; G89.29 - Other chronic pain; G89.29 - Other chronic pain (2) Weakness of both legs Code(s): R29.898 - OTH SYMPTOMS AND SIGNS INVOLVING THE MUSCULOSKELETAL SYSTEM Comments: R29.898 (3) Impaired mobility and activities of daily living Code(s): Z74.09 - OTHER REDUCED MOBILITY Comments: Z74.09
--- NOTE | 2017-08-06 14:42 | RS.OPPTDN ---
Subjective Date of Note: 08/06/17 Visit #: 2 Date of Evaluation: 08/04/17 Payer Source: MEDICARE Treatment Diagnosis: LE weakness, back pain Current Subjective/complaints:: Patient says he wanted to try to walk to our department instead of using the w/c like he had done at his eval. He says his back and LE's are tight and sore, but wants to do what ever he needs to improve them. Pain Assessment - Pain Description Pain Location: low back and legs - Heat/Cryotherapy Treatment: Hot Pack (x 15 mins to mid to low back and hips supine ) Interventions - Exercise/Activities/Manual Therapy Exercises/Activities: Patient began passive stretching bilaterally of SKTC, hamstrings, heel cords, and lower trunk rotation. He began isometric hip abd/ add in hooklying and QS x 10 each. Patient able to amb to/from our dept today carrying his O2 tank over shoulder. Total minutes of Exercise: 17 Manual Therapy: NA - Charges Timed Code Treatment Minutes: 17 Total Treatment Time: 32 Procedures billed for this date of service:: hp, ex Assessment: Patient was able to amb from the waiting room to our dept ~100' each direction. He demo tightness bilaterally to hamstrings and heel cords which would benefit from further treatment of passive stretching. He was able to richard all activity today with only muscle discomfort and admitted improved ability to amb out of the dept and to bend his legs upward in the bed. Patient Education: Education of diagnosis, Body/Joint mechanics, Home Safety Short Term Goals Goal #1: Pt independent and compliant with HEP. Goal to be met by: 08/19/17 Goal #2: Bilateral SLR improved to 45 degrees. Goal to be met by: 08/19/17 Goal #3: Bilateral hip flexion 4+/5. Goal to be met by: 08/19/17 Goal #4: Muscle tone in lumbosacral region decreased to minimal. Goal to be met by: 08/19/17 Nursing Home Goals Goal #1: Pt knows HEP and to continue ex's to maintain functional level at D/C. Goal to be met by: 09/14/17 Goal #2: Score on LE functional scale improved to less than 59% impairment. Goal to be met by: 09/14/17 Goal #3: Pt to amb. community distances with minimal low back pain. Goal to be met by: 09/14/17 Goal #4: Pt will tolerate prolonged standing with minimal back pain. Goal to be met by: 09/14/17 Plan PLAN OF CARE EXPIRES ON:: 09/14/17 ORDER # VISITS AND/OR THROUGH DATE: 09/14/17 PLAN: Continue for modalities prn and therex to improve inflexibility of low back muscles and gait.
--- NOTE | 2017-08-10 15:42 | RS.OPPTDN ---
Subjective Date of Note: 08/10/17 Visit #: 3 Date of Evaluation: 08/04/17 Payer Source: MEDICARE Treatment Diagnosis: LE weakness, back pain Current Subjective/complaints:: Patient says he is hopeful that exercises will help him, but does say he has gotten bad news from his pulmonary MD. He says he now only has 50% lung performance. He says he is upset about it, but wants to try to be as active as he can. - Heat/Cryotherapy Treatment: Hot Pack (mid to low back in supine x 20 mins) Interventions - Exercise/Activities/Manual Therapy Exercises/Activities: Patient began passive stretching bilaterally of SKTC, hamstrings, heel cords, and lower trunk rotation. He continues with isometric hip abd/add in hooklying and QS x 10 each. SAQ 1 08/31#, DF with green tband 2x10. Began partial bridging x 8. Patient uses w/c for assistance. Total minutes of Exercise: 26 Manual Therapy: NA - Charges Timed Code Treatment Minutes: 26 Total Treatment Time: 46 Procedures billed for this date of service:: hp, ex2 Assessment: Patient has had a decrease in function to his lungs per pulmonary MD causing him frustration, but also realizes how much he wants PT to improve his function/strength. He continues to demo marked bilateral HS inflexibility as well as in calves. He was not able to amb back to our department as he had done so at his previous appt., but able to richard increased therex to LE/back. Minimal stretching performed to the R LE due to cramping during. Patient Education: Education of diagnosis, Body/Joint mechanics, Home Exercise Program Patient demonstrates compliance with HEP?: Yes (Has begun HEP) Short Term Goals Goal #1: Pt independent and compliant with HEP. Goal to be met by: 08/19/17 Progress towards Goal:: Progressing Goal #2: Bilateral SLR improved to 45 degrees. Goal to be met by: 08/19/17 Goal #3: Bilateral hip flexion 4+/5. Goal to be met by: 08/19/17 Goal #4: Muscle tone in lumbosacral region decreased to minimal. Goal to be met by: 08/19/17 [facility] Goals Goal #1: Pt knows HEP and to continue ex's to maintain functional level at D/C. Goal to be met by: 09/14/17 Goal #2: Score on LE functional scale improved to less than 59% impairment. Goal to be met by: 09/14/17 Goal #3: Pt to amb. community distances with minimal low back pain. Goal to be met by: 09/14/17 Goal #4: Pt will tolerate prolonged standing with minimal back pain. Goal to be met by: 09/14/17 Plan PLAN OF CARE EXPIRES ON:: 09/14/17 ORDER # VISITS AND/OR THROUGH DATE: 09/14/17 PLAN: Continue heat and therex/activity to improve flexibility and strength to LE's in order to assist with gait.
--- NOTE | 2017-08-12 15:17 | RS.OPPTDN ---
Subjective Date of Note: 08/12/17 Visit #: 4 Date of Evaluation: 08/04/17 Payer Source: MEDICARE Treatment Diagnosis: LE weakness, back pain Current Subjective/complaints:: Patient says he is not sure therapy will help his legs. He says he still has a hard time with walking and remains tight. - Heat/Cryotherapy Treatment: Hot Pack (20 mins to mid to low back supine) Interventions - Exercise/Activities/Manual Therapy Exercises/Activities: Patient continues with passive stretching bilaterally of SKTC, hamstrings, piriformis, heel cords, and lower trunk rotation. He continues with isometric hip abd/add in hooklying and QS x 10 each. Hooklying hip abd with green tband x 10 reps. SAQ 1 08/31#, DF with green tband 2x10. Continued with partial bridging x 8. Patient able to amb to/from dept today carrying portable O2 over shoulder. Total minutes of Exercise: 25 Manual Therapy: NA - Charges Timed Code Treatment Minutes: 25 Total Treatment Time: 45 Procedures billed for this date of service:: hp, ex2 Assessment: Patient does show improved HS length for the L LE by ~10 degrees from eval. He has improved richard also, having less pain. He remains with difficulty to the R LE however and c/o soreness with this side. He is able to perform all other activity well and without c/o. Patient Education: Education of diagnosis, Body/Joint mechanics, Home Exercise Program Patient demonstrates compliance with HEP?: Yes Short Term Goals Goal #1: Pt independent and compliant with HEP. Goal to be met by: 08/19/17 Progress towards Goal:: Progressing Goal #2: Bilateral SLR improved to 45 degrees. Goal to be met by: 08/19/17 Progress towards Goal:: Progressing Comments:: L improving more quickly than R Goal #3: Bilateral hip flexion 4+/5. Goal to be met by: 08/19/17 Goal #4: Muscle tone in lumbosacral region decreased to minimal. Goal to be met by: 08/19/17 [facility] Goals Goal #1: Pt knows HEP and to continue ex's to maintain functional level at D/C. Goal to be met by: 09/14/17 Goal #2: Score on LE functional scale improved to less than 59% impairment. Goal to be met by: 09/14/17 Goal #3: Pt to amb. community distances with minimal low back pain. Goal to be met by: 09/14/17 Goal #4: Pt will tolerate prolonged standing with minimal back pain. Goal to be met by: 09/14/17 Plan PLAN OF CARE EXPIRES ON:: 09/14/17 ORDER # VISITS AND/OR THROUGH DATE: 09/14/17 PLAN: Continue to progress flexibility and LE strength
--- NOTE | 2017-08-17 16:47 | RS.OPPTDN ---
Subjective Date of Note: 08/17/17 Visit #: 5 Date of Evaluation: 08/04/17 Payer Source: MEDICARE Treatment Diagnosis: LE weakness, back pain Current Subjective/complaints:: Patient says he has received poor news regarding his heart. Says graduate assistant athletic trainer is wanting him to have a chemical induced stress test soon. He expresses disappointment about his failing health. He feels therapy will not be very effective with LE weakness and that his lack of O2 will limit his progress. Pain Assessment - Pain Description Pain Description: Tightness - Heat/Cryotherapy Treatment: Hot Pack (mid to low back in supine) Interventions - Exercise/Activities/Manual Therapy Exercises/Activities: Patient continues with passive stretching bilaterally of SKTC, hamstrings, piriformis, heel cords, and lower trunk rotation. He continues with isometric hip abd/add in hooklying and QS 2 x 10 each. Hooklying hip abd with green tband x 10 reps. SAQ 1 /#, DF with green tband 2x10. Continued with bridging 2x10. Patient able to amb to/from dept today carrying portable O2 over shoulder. Total minutes of Exercise: 30 Manual Therapy: NA - Charges Timed Code Treatment Minutes: 30 Total Treatment Time: 50 Procedures billed for this date of service:: hp, ex2 Assessment: Patient expresses frustration about continued bad news regarding his soaping machine back tender/graduate assistant athletic trainer appts. He admits breathing is getting increasingly worse and lacks optimism with therapy at this point. We spoke about asking his MDs whether cardiac rehab may be an option for him to try due to his c/o's and diagnosis. He appears to be progressing with therex in our dept amb to/from waiting room and demo improved hamstring length bilaterally and improved control with all stability exercises when compared to recent visits. Patient Education: Education of diagnosis, Body/Joint mechanics, Home Exercise Program, Education of Plan of Care Patient demonstrates compliance with HEP?: Yes (as able) Short Term Goals Goal #1: Pt independent and compliant with HEP. Goal to be met by: 08/19/17 Progress towards Goal:: Progressing Goal #2: Bilateral SLR improved to 45 degrees. Goal to be met by: 08/19/17 Progress towards Goal:: Progressing Goal #3: Bilateral hip flexion 4+/5. Goal to be met by: 08/19/17 Progress towards Goal:: Progressing Goal #4: Muscle tone in lumbosacral region decreased to minimal. Goal to be met by: 08/19/17 Podiatry Doctor Goals Goal #1: Pt knows HEP and to continue ex's to maintain functional level at D/C. Goal to be met by: 09/14/17 Goal #2: Score on LE functional scale improved to less than 59% impairment. Goal to be met by: 09/14/17 Goal #3: Pt to amb. community distances with minimal low back pain. Goal to be met by: 09/14/17 Goal #4: Pt will tolerate prolonged standing with minimal back pain. Goal to be met by: 09/14/17 Plan PLAN OF CARE EXPIRES ON:: 08/30/17 ORDER # VISITS AND/OR THROUGH DATE: 09/14/17 PLAN: Continue streching and stability/LE strengthening
--- NOTE | 2017-08-19 14:31 | RS.OPPTDN ---
Subjective Date of Note: 08/19/17 Visit #: 6 Date of Evaluation: 08/04/17 Payer Source: MEDICARE Treatment Diagnosis: LE weakness, back pain Current Subjective/complaints:: Patient says he has had a bad week. Reports that he had a NCV test yesterday and he had moderate to severe pain to both legs from groin to feet. He says he had car problems coming into therapy and requested a w/c. Pain Assessment - Pain Description Pain Location: Elevated back pain and LE pain. - Heat/Cryotherapy Treatment: Hot Pack (20 mins mid to low back supine) Interventions - Exercise/Activities/Manual Therapy Exercises/Activities: Patient continues with passive stretching bilaterally of SKTC, hamstrings, piriformis, heel cords, and lower trunk rotation. He continues with isometric hip abd/add in hooklying and QS 2 x 10 each. Lower trunk rotation stretching hooklying hip abd with green tband 2 x 10 reps. SAQ increased to 2#bilaterally, DF with green tband 2x10. Continued with bridging 2x10. Shoulder shrugs and scap adduction at EOB. Patient was weaker today and sore related to neuro appt., but used w/c to push back to our dept. Total minutes of Exercise: 27 Manual Therapy: NA - Charges Timed Code Treatment Minutes: 27 Total Treatment Time: 47 Procedures billed for this date of service:: lui levy Assessment: Patient presents with increased pain related to nerve conduction test yesterday. He has experienced pain to the low back and bilateral LE's with c/o's difficulty walking back to our dept however, he felt he could walk back pushing the w/c. Increased active R DF today with progressed tband and improved control as well as showing improved flexibility to the hamstrings bilaterally without spasms as in previous visits. Patient Education: Home Exercise Program Patient demonstrates compliance with HEP?: Yes (intermittently) Short Term Goals Goal #1: Pt independent and compliant with HEP. Goal to be met by: 08/19/17 Progress towards Goal:: Progressing Goal #2: Bilateral SLR improved to 45 degrees. Goal to be met by: 08/19/17 Progress towards Goal:: Progressing Goal #3: Bilateral hip flexion 4+/5. Goal to be met by: 08/19/17 Progress towards Goal:: Progressing Goal #4: Muscle tone in lumbosacral region decreased to minimal. Goal to be met by: 08/19/17 [facility] Goals Goal #1: Pt knows HEP and to continue ex's to maintain functional level at D/C. Goal to be met by: 09/14/17 Goal #2: Score on LE functional scale improved to less than 59% impairment. Goal to be met by: 09/14/17 Goal #3: Pt to amb. community distances with minimal low back pain. Goal to be met by: 09/14/17 Goal #4: Pt will tolerate prolonged standing with minimal back pain. Goal to be met by: 09/14/17 Plan PLAN OF CARE EXPIRES ON:: 09/14/17 ORDER # VISITS AND/OR THROUGH DATE: 09/14/17 PLAN: Patient to continue 2xwk x 2 more weeks to further provide stretching bilaterally and bilateral LE strengthening.
--- NOTE | 2017-08-27 15:42 | RS.OPPTDN ---
Subjective Date of Note: 08/27/17 Visit #: 7 Date of Evaluation: 08/04/17 Payer Source: MEDICARE Treatment Diagnosis: LE weakness, back pain Current Subjective/complaints:: Patient says he is having a "good day" today. Reports his stress test came back good and says he is pleased his heart is "working fine." Pain Assessment - Pain Description Pain Location: low back and R LE sore, tight, and stiff - Heat/Cryotherapy Treatment: Hot Pack (mid to low back and hips supine x 20 mins) Interventions - Exercise/Activities/Manual Therapy Exercises/Activities: Patient continues with passive stretching bilaterally of SKTC, hamstrings, piriformis, heel cords, and lower trunk rotation. He continues with isometric hip abd and ball squeezes in hooklying and QS 2 x 10 each. Lower trunk rotation stretching hooklying hip abd with green tband 2 x 10 reps. SAQ increased to 2 1/2#bilaterally, DF with green tband 2x10. Attempted bridging, but patient began to have cramping to the LE's. Finished with further stretching bilaterally. Shoulder shrugs and scap adduction at EOB. Patient able to amb to/from dept today with much less difficulty. Total minutes of Exercise: 26 Manual Therapy: NA - Charges Timed Code Treatment Minutes: 26 Total Treatment Time: 46 Procedures billed for this date of service:: hp, ex2 Assessment: Patient able to demo improved hamstring flexibility bilaterally, but more so to the L HS when compared to last week. He is able to amb to/from dept appearing to have less difficulty regarding breathing. He is able to perform progressive weights with SAQ demo improved quad control. Patient Education: Education of diagnosis, Home Exercise Program Patient demonstrates compliance with HEP?: Yes Short Term Goals Goal #1: Pt independent and compliant with HEP. Goal to be met by: 08/19/17 Progress towards Goal:: Progressing Goal #2: Bilateral SLR improved to 45 degrees. Goal to be met by: 08/19/17 Progress towards Goal:: Progressing Goal #3: Bilateral hip flexion 4+/5. Goal to be met by: 08/19/17 Progress towards Goal:: Progressing Goal #4: Muscle tone in lumbosacral region decreased to minimal. Goal to be met by: 08/19/17 Progress towards Goal:: Progressing Breakfast Bar Attendant Goals Goal #1: Pt knows HEP and to continue ex's to maintain functional level at D/C. Goal to be met by: 09/14/17 Progress towards goal: Progressing Goal #2: Score on LE functional scale improved to less than 59% impairment. Goal to be met by: 09/14/17 Goal #3: Pt to amb. community distances with minimal low back pain. Goal to be met by: 09/14/17 Goal #4: Pt will tolerate prolonged standing with minimal back pain. Goal to be met by: 09/14/17 Plan PLAN OF CARE EXPIRES ON:: 09/14/17 ORDER # VISITS AND/OR THROUGH DATE: 09/14/17 PLAN: Patient to continue x 3 more sessions for therex to further improve flexibility and strength.
== END 2017-08-29 ==
PROVIDERS: ATTEND Clinical Nurse Specialist Adult Health
DX: R29.898 Other symptoms and signs involving the musculoskeletal system (principal); M54.5 Low back pain; G89.29 Other chronic pain

== ENCOUNTER 2017-09-09 14:00 | Outpatient (RCR) ==
[2017-03-13 19:46] VITALS: BMI 33.9
--- NOTE | 2017-08-31 10:02 | RS.CXNS ---
Date of scheduled appointment: 08/31/17 Type: Cancel Reason for Cancel/NS: too cold
--- NOTE | 2017-09-02 15:26 | RS.OPPTDN ---
Subjective Date of Note: 09/02/17 Visit #: 8 Date of Evaluation: 08/04/17 Payer Source: MEDICARE Treatment Diagnosis: LE weakness, back pain Current Subjective/complaints:: Patient says he thinks therapy may be helping his back/legs "a little." He says he has many issues with his back and feels his progress will be very limited due to his breathing, which he adds is getting worse. Pain Assessment - Pain Description Pain Location: mid to low back and into bilateral LEs - Heat/Cryotherapy Treatment: Hot Pack (20 mins to mid to low back in supine) Interventions - Exercise/Activities/Manual Therapy Exercises/Activities: Patient continues with passive stretching bilaterally of SKTC, hamstrings, piriformis, heel cords, and lower trunk rotation. He continues with isometric hip abd and ball squeezes in hooklying and QS 2 x 10 each. Hooklying hip abd with green tband 2 x 10 reps. SAQ 2 1/2#bilaterally, DF with green tband 2x10. Bridging x 10. Finished with further stretching bilaterally. Shoulder shrugs and scap adduction at EOB. Patient has amb to and from dept today. Total minutes of Exercise: 33 Manual Therapy: NA - Charges Timed Code Treatment Minutes: 33 Total Treatment Time: 53 Procedures billed for this date of service:: hp, ex2 Assessment: Patient demo increased bilateral HS inflexibility today, but has not been able to attend in ~1 week due to being sick and holiday. He has been trying to maintain HEP. He does show improved tolerance to amb and increasing weight and therex in the dept. He was able to perform bridging no longer being stopped by LB spasms. Patient Education: Education of diagnosis, Home Exercise Program Patient demonstrates compliance with HEP?: Yes Short Term Goals Goal #1: Pt independent and compliant with HEP. Goal to be met by: 08/19/17 Progress towards Goal:: Met Goal #2: Bilateral SLR improved to 45 degrees. Goal to be met by: 08/19/17 Progress towards Goal:: Progressing Goal #3: Bilateral hip flexion 4+/5. Goal to be met by: 08/19/17 Progress towards Goal:: Met Goal #4: Muscle tone in lumbosacral region decreased to minimal. Goal to be met by: 08/19/17 Progress towards Goal:: Progressing Relief Mate Goals Goal #1: Pt knows HEP and to continue ex's to maintain functional level at D/C. Goal to be met by: 09/14/17 Progress towards goal: Progressing Goal #2: Score on LE functional scale improved to less than 59% impairment. Goal to be met by: 09/14/17 Progress towards goal: Progressing Goal #3: Pt to amb. community distances with minimal low back pain. Goal to be met by: 09/14/17 Progress towards goal: Progressing Goal #4: Pt will tolerate prolonged standing with minimal back pain. Goal to be met by: 09/14/17 Progress towards goal: No Change Plan PLAN OF CARE EXPIRES ON:: 09/14/17 ORDER # VISITS AND/OR THROUGH DATE: 09/14/17 PLAN: Patient has 2 sessions remaining to continue to work on passive stretching and building LE strength to assist with gait richard.
--- NOTE | 2017-09-07 15:02 | RS.OPPTDN ---
Subjective Date of Note: 09/07/17 Visit #: 9 Date of Evaluation: 08/04/17 Payer Source: MEDICARE Treatment Diagnosis: LE weakness, back pain Current Subjective/complaints:: Patient says that he feels walking may be getting better, but has had back pain all weekend. Reports he feels he is generally getting worse due to decreased lung capacity and breathing difficulties influencing the rest of his body. Pain Assessment - Pain Description Pain Location: mid to low back - Heat/Cryotherapy Treatment: Hot Pack (20 mins to mid to low back in supine and with stretching) Interventions - Exercise/Activities/Manual Therapy Exercises/Activities: Patient continues with passive stretching bilaterally of SKTC, hamstrings, piriformis, heel cords, and lower trunk rotation. He continues with isometric hip abd and ball squeezes in hooklying and QS 2 x 10 each. Hooklying hip abd with green tband 2 x 10 reps. SAQ 2 1/2#bilaterally, DF with green tband 2x10. Bridging x 10. Finished with further stretching bilaterally. Finished with more stretching. Shoulder shrugs and scap adduction at EOB. Patient has amb to and from dept today. Total minutes of Exercise: 30 Manual Therapy: NA - Charges Timed Code Treatment Minutes: 30 Total Treatment Time: 50 Procedures billed for this date of service:: hp, ex2 Assessment: Patient presents amb to dept with portable O2 @ 3L. Patient's sats were checked during exercises (supine) @ 92-93%. Patient indicates this is pretty normal. He maintains very tight HS and gastrocs despite stretching. Patient Education: Education of diagnosis, Home Exercise Program, Education of Plan of Care Patient demonstrates compliance with HEP?: Yes Short Term Goals Goal #1: Pt independent and compliant with HEP. Goal to be met by: 08/19/17 Progress towards Goal:: Met Goal #2: Bilateral SLR improved to 45 degrees. Goal to be met by: 08/19/17 Progress towards Goal:: Progressing Goal #3: Bilateral hip flexion 4+/5. Goal to be met by: 08/19/17 Progress towards Goal:: Met Goal #4: Muscle tone in lumbosacral region decreased to minimal. Goal to be met by: 08/19/17 Progress towards Goal:: Progressing Usp Goals Goal #1: Pt knows HEP and to continue ex's to maintain functional level at D/C. Goal to be met by: 09/14/17 Progress towards goal: Progressing Goal #2: Score on LE functional scale improved to less than 59% impairment. Goal to be met by: 09/14/17 Progress towards goal: Progressing Goal #3: Pt to amb. community distances with minimal low back pain. Goal to be met by: 09/14/17 Progress towards goal: Progressing Goal #4: Pt will tolerate prolonged standing with minimal back pain. Goal to be met by: 09/14/17 Progress towards goal: No Change Plan PLAN OF CARE EXPIRES ON:: 09/14/17 ORDER # VISITS AND/OR THROUGH DATE: 09/14/17 PLAN: Continue x 1 more session per order
--- NOTE | 2017-09-13 11:38 | RS.OPPTDN ---
Subjective Date of Note: 09/09/17 Visit #: 10 Date of Evaluation: 08/04/17 Payer Source: MEDICARE Treatment Diagnosis: LE weakness, back pain Current Subjective/complaints:: Patient indicates he has not had much relief of back pain. He says his breathing is his main problem that hinders his walking. He says he performs some of his exercises, but doesn't see how that will help his breathing. Pain Assessment - Pain Description Pain Location: low back pain, equal on both sides - Heat/Cryotherapy Treatment: Hot Pack (20 mins mid to low back supine) Interventions - Exercise/Activities/Manual Therapy Exercises/Activities: Patient continues with passive stretching bilaterally of SKTC, hamstrings, piriformis, heel cords, and lower trunk rotation. He continues with isometric hip abd and ball squeezes in hooklying and QS 2 x 10 each. Hooklying hip abd with green tband 2 x 10 reps. SAQ increased to 3# bilaterally, DF with green tband 2x10. Bridging x 10. Finished with further stretching bilaterally. Shoulder shrugs and scap adduction at EOB. Patient has amb to and from dept today. Patient completes Functional Assessment. Total minutes of Exercise: 33 Manual Therapy: NA - Charges Timed Code Treatment Minutes: 33 Total Treatment Time: 53 Procedures billed for this date of service:: hp ex2 Assessment: Patient does not show significant improvement per FES or verbally. He has a progressed HEP and was encouraged to talk to his MD about possibly trying Cardiac Rehab. Short Term Goals Goal #1: Pt independent and compliant with HEP. Goal to be met by: 08/19/17 Progress towards Goal:: Met Goal #2: Bilateral SLR improved to 45 degrees. Goal to be met by: 08/19/17 Progress towards Goal:: Progressing Goal #3: Bilateral hip flexion 4+/5. Goal to be met by: 08/19/17 Progress towards Goal:: Met Goal #4: Muscle tone in lumbosacral region decreased to minimal. Goal to be met by: 08/19/17 Progress towards Goal:: Progressing Cardiology Associate Goals Goal #1: Pt knows HEP and to continue ex's to maintain functional level at D/C. Goal to be met by: 09/14/17 Progress towards goal: Progressing Goal #2: Score on LE functional scale improved to less than 59% impairment. Goal to be met by: 09/14/17 Progress towards goal: Progressing Comments: Patient has only improved by 2 points Goal #3: Pt to amb. community distances with minimal low back pain. Goal to be met by: 09/14/17 Progress towards goal: Progressing Goal #4: Pt will tolerate prolonged standing with minimal back pain. Goal to be met by: 09/14/17 Progress towards goal: No Change Plan PLAN OF CARE EXPIRES ON:: 09/14/17 ORDER # VISITS AND/OR THROUGH DATE: 09/14/17 PLAN: Plan to d/c due to lack of significant progress and has completed order.
--- NOTE | 2017-09-20 16:21 | RS.OPPTDC ---
Date of Discharge: 09/09/17 Date of Evaluation: 08/04/17 Number of Visits: 10 Treatment Diagnosis: LE weakness, back pain Current Complaints/Gains: Patient reports increasing pulmonary problems iin which he feels is not going to improve with Physical Therapy. He continues to have back chiang and difficulty ambulating due to diminished lung capacity. Reports slight decrease in back pain with exercises and heat. Functional Outcome Measure LE Functional Scale: 22 (22/50=73% impairment) - G Codes & Severity Modifier G Codes & Modifier: Mobility D/C CL. Mobility Goal CK Source of G Code score: LE functional scale Interventions - Exercise/Activities/Manual Therapy Exercises/Activities: NA Manual Therapy: NA - Charges Timed Code Treatment Minutes: Na Total Treatment Time: NA Procedures billed for this date of service:: NA Assessment Assessment: Patient demonstrates a two point increase in LE functional assessment. He has had a difficult time attending therapy due to the cold weather and its impact on his breathing. He presents to have met his maxium potential with therapy at this time. Short Term Goals Goal #1: Pt independent and compliant with HEP. Goal to be met by: 08/19/17 Progress towards Goal:: Met Goal #2: Bilateral SLR improved to 45 degrees. Goal to be met by: 08/19/17 Progress towards Goal:: Not Met Goal #3: Bilateral hip flexion 4+/5. Goal to be met by: 08/19/17 Progress towards Goal:: Met Goal #4: Muscle tone in lumbosacral region decreased to minimal. Goal to be met by: 08/19/17 Progress towards Goal:: Not Met Executive Administrative Assistant Goals Goal #1: Pt knows HEP and to continue ex's to maintain functional level at D/C. Goal to be met by: 09/14/17 Progress towards goal: Met Goal #2: Score on LE functional scale improved to less than 59% impairment. Goal to be met by: 09/14/17 Progress towards goal: Not Met Goal #3: Pt to amb. community distances with minimal low back pain. Goal to be met by: 09/14/17 Progress towards goal: Not Met Goal #4: Pt will tolerate prolonged standing with minimal back pain. Goal to be met by: 09/14/17 Progress towards goal: Not Met Plan Reason for Discharge:: Maximum Potential Met
== END 2017-09-29 ==
PROVIDERS: ATTEND Clinical Nurse Specialist Adult Health
DX: R29.898 Other symptoms and signs involving the musculoskeletal system (principal); M54.5 Low back pain; G89.29 Other chronic pain

== ENCOUNTER 2017-10-20 11:37 | Emergency (ER) ==
[2017-10-20 11:41] VITALS: BP 124/62; TEMP 98.5; BMI 35.2
--- NOTE | 2017-10-20 13:44 | CT ---
EXAM: CT chest without contrast. HISTORY: Cough and chest congestion. COMPARISON: 03/06/2017. TECHNIQUE: Multiple axial images of the chest were obtained without intravenous contrast. Images we re reformatted in the sagittal and coronal planes. FINDINGS: Multiple mediastinal lymph nodes are present which appear stable from prior study. Calcif ied mediastinal and hilar lymph nodes also noted. Heart size is normal. No pericardial effusion gigi ntified. Atherosclerotic calcifications are present. Emphysematous changes present bilaterally. Calcified and noncalcified micronodules in both lungs and subpleural reticular opacities calcifications are stable since the prior examination. No new area o f consolidation, pleural effusion or pneumothorax identified. No acute abnormality detected in the upper abdomen. Degenerative changes are seen in the spine. Old right lateral ninth rib fracture noted. IMPRESSION: 1. No acute process. 2. Stable emphysema, scarring/fibrosis and sequela of prior granulomatous disease.
--- NOTE | 2017-10-20 14:13 | ED.PDOC ---
General ED Provider: Dr. RAKEL STEWART Chief Complaint: Respiratory Complaint Stated Complaint: congestion Time Seen by Physician: 11:45 (flu like symp seen with nurse seen wit his nurse at all times ) Mode of Arrival: Walk-In Information Source: Patient Exam Limitations: No limitations Primary Care Provider: MARIVEL SIMMONS Nursing and Triage Documentation Reviewed and Agree: Yes Reviewed sepsis parameters & appropriate labs ordered?: Yes System Inflammatory Response Syndrome: Not Applicable Sepsis Protocol: For patient's 13 years and over: Temp is 96.8 and below OR 101 and greater Pulse >90 BPM Resp >20/minute Acutely Altered Mental Status Are patient's symptoms suggestive of a new infection, such as: -Pneumonia -Skin, Soft Tissue -Endocarditis -UTI -Bone, Joint Infection -Implantable Device -Acute Abdominal Infection -Wound Infection -Meningitis -Blood Stream Catheter Infection -Unknown System Inflammatory Response Syndrome: Not Applicable Respiratory Complaint Exam - Respiratory Complaint/Exam Onset/Duration: 1week Symptoms Are: Still present Initial Severity: Mild Current Severity: Mild Location: Nose, Throat, Chest Character: Reports: Non-productive cough, Dry cough Aggravating: Reports: URI Alleviating: Reports: Bronchodilators, Spontaneous resolution Associated Signs and Symptoms: Reports: URI, Nasal congestion. Denies: Rapid breathing, Dyspnea, Fever, Chills, Chest pain, Pleuritic chest pain, Wheezing, Hemoptysis, Dizziness, Calf pain, Calf swelling, Edema, Hoarseness, Sinus discomfort, Vomiting, Sore throat, Weight loss, Decreased oral intake, Increased thirst, Increased appetite, Increased urination Related History: Reports: Similar episode History of Healthcare-Acquired Pneumonia: No Related Surgical History: Reports: None Pulmonary Embolism Risk Factors: None Cardiac Risk Factors: Reports: Diabetes, Hypertension Pseudomonas Risk Factors: Reports: Chronic Lung Disease (on o2 ) Tuberculosis Risk Factors: Reports: Chronic Resp. Faliure Status Asthmaticus Risk Factors: Reports: None Home Oxygen Use: Yes Recent Stress Test: No Recent Echo/LV Function: No Current Antibiotic Use: No Respiratory Distress: None Inadequate Respiratory Effort: No Dysphagia Present: No Stridor Present: No JVD Present: No Accessory Muscle Use: No Retractions: Not Present Diminished Breath Sounds: Yes Sinus Tenderness: None Grunting Respirations: No Kussmaul Respirations: No Differential Diagnoses: Pneumonia, Bronchitis, Lower Resp. Infection Review of Systems - Review Of Systems Constitutional: Reports: Malaise Eyes: Reports: No symptoms Ears, Nose, Mouth, Throat: Reports: No symptoms Respiratory: Reports: Cough, Wheezing Cardiac: Reports: No symptoms GI: Reports: No symptoms : Reports: No symptoms Musculoskeletal: Reports: No symptoms Skin: Reports: No symptoms Neurological: Reports: No symptoms Endocrine: Reports: No symptoms Hematologic/Lymphatic: Reports: No symptoms All Other Systems: Reviewed and Negative Past Medical History - Past Medical History Previously Healthy: Yes Endocrine: Reports: DM 2 Cardiovascular: Reports: Hypertension, A-Fib Respiratory: Reports: COPD Hematological: Reports: None Gastrointestinal: Reports: GERD Genitourinary: Reports: None Neuro/Psych: Reports: None Musculoskeletal: Reports: None Cancer: Reports: None - Surgical History General Surgical History: Reports: Unknown - Family History Family History: Reports: Unknown - Social History Smoking Status: Former smoker Hx Substance Use: No Alcohol Screening: None - Immunizations Tetanus Shot up to Date: Yes Physical Exam - Physical Exam Appearance: Ill-appearing Ill-appearing: Mild Pain Distress: Mild Eyes: SUZANNE, EOMI, Conjunctiva clear ENT: Ears normal, Nose normal, Oropharynx normal Respiratory: Rhonchi, Wheezes Cardiovascular: RRR, Pulses normal, No rub, No murmur GI/: Soft, Nontender, No masses, Bowel sounds normal, No Organomegaly Musculoskeletal: Normal strength, ROM intact, No edema, No calf tenderness Skin: Warm, Dry, Normal color Neurological: Sensation intact, Motor intact, Reflexes intact, Cranial nerves intact, Alert, Oriented Psychiatric: Affect appropriate, Mood appropriate Interpretation - Radiology Interpretation Radiology Interpretation By: Radiologist Radiology Results: No acute changes Critical Care Note - Critical Care Note Total Time (mins): 0 Course - Course Hematology/Chemistry: 10/20/17 12:25 Orders, Labs, Meds: Lab Review 10/20/17 10/20/17 10/20/17 12:05 12:25 12:25 WBC 11.24 H RBC 3.88 L Hgb 11.6 L Hct 35.1 L MCV 90.5 MCH 29.9 MCHC 33.0 RDW Coeff of [place] 14.0 Plt Count 184 Immature Gran % (Auto) 2.1 Neut % (Auto) 79.8 Lymph % (Auto) 8.9 L [place] % (Auto) 7.7 Eos % (Auto) 1.0 Baso % (Auto) 0.5 Immature Gran # (Auto) 0.2 Neut # 9.0 H Lymph # 1.0 [place] # 0.9 Eos # 0.1 Baso # 0.1 Total Creatine Kinase 148 CK-MB (CK-2) 4.0 H CK-MB (CK-2) % 2.34047 Troponin I 0.0140 Influenza A (Rapid) Negative by naat Influenza B (Rapid) Negative by naat Orders Category Date Time Status EKG-(ED ONLY) Stat CARDIO 10/20/17 12:04 Completed CBC W/ AUTO DIFF Stat LAB 10/20/17 12:25 Completed CREATINE KINASE Stat LAB 10/20/17 12:25 Completed FLU A/B MOLECULAR Stat LAB 10/20/17 12:05 Completed TROPONIN I Stat LAB 10/20/17 12:[address] CHEST W/O CONTRAST Stat RADS 10/20/17 13:09 Completed Vital Signs: Temp Pulse Resp BP Pulse Ox 10/20/17 11:38 98.5 F 76 24 124/62 92 L Departure - Departure Time of Disposition: 15:00 Disposition: HOME SELF-CARE Discharge Problem: Viral syndrome Instructions: Viral Syndrome (ED) Condition: Good Pt referred to PMD for follow-up: Yes IPMP verified?: No Additional Instructions: Please call your Family Physician as soon as possible to schedule a follow-up appointment. Allergies/Adverse Reactions: Allergies No Known Allergies Allergy (Verified 03/13/17 19:45) Home Medications: Ambulatory Orders Apixaban [Eliquis] 5 mg PO BID 12/21/16 Atenolol 25 mg PO BEDTIME 12/21/16 Ergocalciferol (Vitamin D2) [Vitamin D2] 50,000 units PO DAILY 12/21/16 Ezetimibe [Zetia] 10 mg PO DAILY 12/21/16 Fluticasone/Vilanterol [Breo Ellipta 100-25 Mcg INH] 1 mcg INH DAILY 12/21/16 Furosemide 20 mg PO DAILY 12/21/16 Gabapentin 600 mg PO BEDTIME 12/21/16 Hydrocodone/Acetaminophen [Hydrocodon-Acetaminophn 10-325] 10 - 325 mg PO Q6HR 12/21/16 Insulin Detemir [Levemir] 240 units SUBCUT BEDTIME 12/21/16 Insulin Lispro [Humalog Kwikpen U-200] 80 units SUBCUT TID 12/21/16 Losartan Potassium [Cozaar] 50 mg PO DAILY 12/21/16 Prednisone 10 mg PO DAILYWM 12/21/16 Quetiapine Fumarate 100 mg PO BEDTIME 12/21/16 Cholecalciferol (Vitamin D3) [Vitamin D3] 1,000 unit PO DAILY 03/06/17 Potassium 99 mg PO DAILY 03/06/17 Cefdinir [Omnicef] 300 mg PO BID #10 capsule 03/08/17 Guaifenesin [Mucinex] 1,200 mg PO Q12HR #60 tablet.er 03/08/17 Disposition Discussed With: Patient, Family
[2017-10-20] MEDS ORDERED: ZITHROMAX PO STA (14:14)
[2017-10-20] MEDS ORDERED: DECADRON 4 MG/ML SDV IM STA (14:14)
== END 2017-10-20 14:25 | disposition home or self-care (01) ==
LOC: ED 11:37
DX: B34.9 Viral infection, unspecified (principal); R05 Cough; E11.9 Type 2 diabetes mellitus without complications; I10 Essential (primary) hypertension; J44.9 Chronic obstructive pulmonary disease, unspecified; Z79.899 Other long term (current) drug therapy; Z99.81 Dependence on supplemental oxygen
CPT/HCPCS: 36415; 80053; 82550; 82553; 84484; 85025; 87502; 93005; 93010; 96372; 99283

== ENCOUNTER 2017-11-16 12:15 | Outpatient (RCR) ==
[2017-11-23 13:35] VITALS: BP 130/70
== END 2017-11-27 ==
LOC: PUL.REHAB 12:15
PROVIDERS: ATTEND Family Medicine
DX: J44.1 Chronic obstructive pulmonary disease with (acute) exacerbation (principal)

== ENCOUNTER 2017-11-29 09:11 | Outpatient (RCR) ==
[2017-12-23 13:21] VITALS: BP 118/54
== END 2017-12-27 23:59 ==
LOC: PUL.REHAB 09:11
PROVIDERS: ATTEND Family Medicine
DX: J44.1 Chronic obstructive pulmonary disease with (acute) exacerbation (principal)

== ENCOUNTER 2017-12-28 06:57 | Outpatient (RCR) ==
[2018-01-27 13:15] VITALS: BP 114/54
== END 2018-01-27 23:59 ==
LOC: PUL.REHAB 06:57
PROVIDERS: ATTEND Family Medicine
DX: J44.1 Chronic obstructive pulmonary disease with (acute) exacerbation (principal)

== ENCOUNTER 2018-01-28 09:14 | Outpatient (RCR) ==
[2018-02-10 13:19] VITALS: BP 110/62
== END 2018-02-26 23:59 ==
LOC: PUL.REHAB 09:14
PROVIDERS: ATTEND Family Medicine
DX: J44.1 Chronic obstructive pulmonary disease with (acute) exacerbation (principal)

== ENCOUNTER 2018-02-28 07:46 | Outpatient (RCR) | END 2018-03-01 12:30 | disposition home or self-care (01) | LOC: PUL.REHAB 07:46 | PROVIDERS: ATTEND Family Medicine | DX: J44.1 Chronic obstructive pulmonary disease with (acute) exacerbation (principal) ==

== ENCOUNTER 2019-03-02 23:37 | Emergency (ER) ==
[2019-03-02 23:53] VITALS: BP 163/81
[2019-03-02 23:54] VITALS: TEMP 99.3; BMI 38.1
--- NOTE | 2019-03-03 06:19 | ED.PDOC ---
General ED Provider: Dr. MARIVEL SIMMONS-ER Chief Complaint: Diabetes Stated Complaint: i took too much rapid actiing insulin Time Seen by Physician: 23:40 Mode of Arrival: Walk-In Information Source: Patient Exam Limitations: No limitations Primary Care Provider: MARIVEL SIMMONS Nursing and Triage Documentation Reviewed and Agree: Yes Does patient meet sepsis criteria?: No System Inflammatory Response Syndrome: Not Applicable Sepsis Protocol: For patient's 13 years and over: Temp is 96.8 and below OR 101 and greater Pulse >90 BPM Resp >20/minute Acutely Altered Mental Status Are patient's symptoms suggestive of a new infection, such as: -Pneumonia -Skin, Soft Tissue -Endocarditis -UTI -Bone, Joint Infection -Implantable Device -Acute Abdominal Infection -Wound Infection -Meningitis -Blood Stream Catheter Infection -Unknown Endocrine Complaint Exam - Diabetic Complication Complaint/Exam Onset/Duration: tonight Symptoms Are: Resolved Timing: Constant Initial Severity: Mild Current Severity: None Character: Alert Aggravating: Reports: Medication change Alleviating: Reports: Food Associated Signs and Symptoms: Denies: Decreased LOC, Polydipsia, Polyuria, Polyphagia, Weight loss, Abdominal pain, Nausea, Vomiting, Fever, Diaphoresis, Fruity breath Related History: Reports: DM 2, Insulin requiring Cardiac Risk Factors: Reports: DM CVA Risk Factors: Reports: DM Acetone on Breath: No Dry Mucous Membranes: No Kussmaul Respirations: No Glascow Coma Scale (see protocol): 15 Meningeal Signs: No Focal Weakness: None Focal Sensory Loss: None Gait: Normal Nystagmus Present: No Gag Reflex Present: Yes Finger to Nose: Normal Romberg Test Positive: No Babinski Sign: Negative Right, Negative Left Heel to Toe Normal: Yes Differential Diagnoses: Hypoglycemia Review of Systems - Review Of Systems Constitutional: Reports: No symptoms Eyes: Reports: No symptoms Ears, Nose, Mouth, Throat: Reports: No symptoms Respiratory: Reports: Short of air Cardiac: Reports: No symptoms GI: Reports: No symptoms : Reports: No symptoms Musculoskeletal: Reports: No symptoms Skin: Reports: No symptoms Neurological: Reports: No symptoms Endocrine: Reports: No symptoms Hematologic/Lymphatic: Reports: No symptoms All Other Systems: Reviewed and Negative Past Medical History - Past Medical History Previously Healthy: Yes Endocrine: Reports: DM 2 Cardiovascular: Reports: Hypertension, A-Fib Respiratory: Reports: COPD Hematological: Reports: None Gastrointestinal: Reports: GERD Genitourinary: Reports: None Neuro/Psych: Reports: None Musculoskeletal: Reports: None Cancer: Reports: None - Surgical History General Surgical History: Reports: Unknown - Family History Family History: Reports: Unknown - Social History Smoking Status: Former smoker Hx Substance Use: No Alcohol Screening: None - Immunizations Tetanus Shot up to Date: Yes Physical Exam - Physical Exam Appearance: Well-appearing, No pain distress, Well-nourished Eyes: SUZANNE, EOMI, Conjunctiva clear ENT: Ears normal, Nose normal, Oropharynx normal Neck: Supple Respiratory: Respirations nonlabored Cardiovascular: RRR, Pulses normal, No rub, No murmur GI/: Soft, Nontender, No masses, Bowel sounds normal, No Organomegaly Musculoskeletal: Normal strength, ROM intact, No edema, No calf tenderness Skin: Warm, Dry, Normal color Neurological: Sensation intact Psychiatric: Affect appropriate, Mood appropriate Critical Care Note - Critical Care Note Total Time (mins): 0 Course - Course Orders, Labs, Meds: Orders Category Date Time Status BLOOD GLUCOSE MONITORING Q1HR CARE 03/03/19 00:16 Active ACCUCHECK (ED) [ED ACCUCHECK ASSESSMENT] .ONCE EMERGENCY 03/03/19 00:16 Active Vital Signs: Temp Pulse Resp BP Pulse Ox 03/02/19 23:38 99.3 F 80 20 163/81 H 99 Departure - Departure Time of Disposition: 06:19 Disposition: HOME SELF-CARE Discharge Problem: Hypoglycemia Instructions: Hypoglycemia in a Person with Diabetes (ED) Condition: Fair Pt referred to PMD for follow-up: Yes IPMP verified?: No Additional Instructions: resume insulin and diet--return prn Allergies/Adverse Reactions: Allergies No Known Allergies Allergy (Verified 03/02/19 23:53) Home Medications: Ambulatory Orders Apixaban [Eliquis] 5 mg PO BID 12/21/16 Atenolol 25 mg PO BEDTIME 12/21/16 Ergocalciferol (Vitamin D2) [Vitamin D2] 50,000 units PO DAILY 12/21/16 Ezetimibe [Zetia] 10 mg PO DAILY 12/21/16 Fluticasone/Vilanterol [Breo Ellipta 100-25 Mcg INH] 1 mcg INH DAILY 12/21/16 Furosemide 20 mg PO DAILY 12/21/16 Gabapentin 600 mg PO BEDTIME 12/21/16 Hydrocodone/Acetaminophen [Hydrocodon-Acetaminophn 10-325] 10 - 325 mg PO Q6HR 12/21/16 Insulin Detemir [Levemir] 240 units SUBCUT BEDTIME 12/21/16 Insulin Lispro [Humalog Kwikpen U-200] 80 units SUBCUT TID 12/21/16 Losartan Potassium [Cozaar] 50 mg PO DAILY 12/21/16 Prednisone 10 mg PO DAILYWM 12/21/16 Quetiapine Fumarate 100 mg PO BEDTIME 12/21/16 Cholecalciferol (Vitamin D3) [Vitamin D3] 1,000 unit PO DAILY 03/06/17 Potassium 99 mg PO DAILY 03/06/17 Cefdinir [Omnicef] 300 mg PO BID #10 capsule 03/08/17 Guaifenesin [Mucinex] 1,200 mg PO Q12HR #60 tablet.er 03/08/17 Disposition Discussed With: Patient
== END 2019-03-03 06:54 | disposition home or self-care (01) ==
LOC: ED 23:37
DX: E11.649 Type 2 diabetes mellitus with hypoglycemia without coma (principal); T38.3X5A Adverse effect of insulin and oral hypoglycemic [antidiabetic] drugs, initial encounter; Z79.4 Long term (current) use of insulin; Z79.899 Other long term (current) drug therapy
CPT/HCPCS: 99282

== ENCOUNTER 2019-04-05 | Emergency (ER) | END 2019-04-05 13:47 | disposition short-term general hospital (02) | CPT/HCPCS: 36415; 80053; 82550; 82553; 82803; 83605; 83880; 84145; 84484; 85025; 85379; 85610; 85730; 87040; 87070; 93005; 93010; 94640; 96365; 99285 ==